=== PATIENT | female | born 1985 | race Caucasian/White ===

== ENCOUNTER → 2021-01-20 | Outpatient (CLI) | payer BC ==
[~2021-01-20] MED LIST: ANAPROX DS550 MG PO; COLACE100 MG PO; IRON PO; ULTRAM50 MG PO; ZYRTEC10 MG PO
[2021-01-20 10:54] LABS: HEMOGLOBIN 10.7 gm/dl (12.3-15.3); RED BLOOD COUNT 3.71 M/UL (4.00-5.10); WHITE BLOOD COUNT 8.8 K/UL (4.5-11.0)
== END ==
LOC: OPSV2 09:30
PROVIDERS: Obstetrics & Gynecology
DX: Z01.812 Encounter for preprocedural laboratory examination (principal); N93.9 Abnormal uterine and vaginal bleeding, unspecified
CPT/HCPCS: 36415; 81001; 85025

== ENCOUNTER → 2021-01-29 | Day surgery (SDC) | payer BC | END | disposition home or self-care (01) | LOC: OR 08:30 | DX: D25.9 Leiomyoma of uterus, unspecified (principal); N83.01 Follicular cyst of right ovary; K21.9 Gastro-esophageal reflux disease without esophagitis; F41.0 Panic disorder [episodic paroxysmal anxiety]; Z88.5 Allergy status to narcotic agent; Z79.899 Other long term (current) drug therapy | CPT/HCPCS: 84703; J0690; J1100; J1170; J2001; J2250; J2405; J2704; J2795; J3010; J7120 ==